=== PATIENT | male | born 2000 | race African-American/Black ===

== ENCOUNTER 2018-07-26 20:13 | Emergency (ER) | payer OTHER ==
[~2018-07-26] VITALS: Ht 167.6 cm; Wt 86.4 kg
[2018-07-26 20:16] VITALS: TEMP 97.7
[2018-07-26 21:03] LABS: BASO % 0.5 % (0.0-2.0); EOS # 0.1 (0.0-0.7); EOS % 1.7 % (0-4.0); GRAN # 3.5 (1.4-6.5); GRAN % 54.6 % (42.2-75.2); HEMOGLOBIN 17.3 g/dl (12.5-16.1); LYMPH # 2.3 (1.2-3.4); MEAN CELL VOLUME 72 fl (80.0-95.0); MEAN CORPUSCULAR HEMOGLOBIN 24 pg (26.0-32.0); MEAN CORPUSCULAR HGB CONC 33 g/dl (33.0-37.0); MEAN PLATELET VOLUME 10.6 fl (7.4-10.4); MONO # 0.4 (0.1-0.6); PLATELET COUNT 290 K/mm3 (130-400); RED BLOOD COUNT 7.28 M/mm3 (4.20-5.60); REDCELL DISTRIBUTION WIDTH-CV 15.5 % (11.5-14.5)
[2018-07-26 21:04] LABS: HEMATOCRIT 52.7 % (36.0-47.0)
[2018-07-26 21:14] LABS: ALANINE AMINOTRANSFERASE 34 U/L (21-72); ALBUMIN 4.8 gm/dL (3.5-5.0); ALKALINE PHOSPHATASE 73 U/L (50-136); ANION GAP 10 mmol/L (7-16); AST,SGOT 20 U/L (15-37); BILIRUBIN,TOTAL 0.9 mg/dL (0.0-1.0); BLOOD UREA NITROGEN 12 mg/dL (9-20); CALCIUM 9.8 mg/dL (8.4-10.2); CARBON DIOXIDE 25 mmol/L (22-30); CHLORIDE 105 mmol/L (98-107); CREATININE, serum 0.89 mg/dL (0.66-1.25); GLUCOSE 113 mg/dL (74-106); POTASSIUM 3.7 mmol/L (3.4-5.0); SODIUM 139 mmol/L (137-145); TOTAL PROTEIN 7.9 gm/dL (6.4-8.2)
[2018-07-26 21:28] LABS: TROPONIN-I < 0.012 ng/mL (0.000-0.034)
[2018-07-26 22:30] VITALS: BP 146/89; PULSE 118
== END 2018-07-26 22:30 | disposition home or self-care (01) ==
LOC: COL.ER 20:13
PROVIDERS: Emergency Medicine
DX: R00.0 Tachycardia, unspecified (principal); F12.90 Cannabis use, unspecified, uncomplicated
CPT/HCPCS: J2060; J7030

== ENCOUNTER 2018-07-27 22:29 | Emergency (ER) | payer OTHER ==
[~2018-07-27] VITALS: Ht 167.6 cm; Wt 86.4 kg
[2018-07-27 22:49] VITALS: TEMP 98.9
[2018-07-28 00:32] VITALS: PULSE 100
[2018-07-28 02:21] LABS: BASO % 0.3 % (0.0-2.0); EOS # 0.1 (0.0-0.7); EOS % 0.8 % (0-4.0); GRAN # 3.5 (1.4-6.5); GRAN % 56.8 % (42.2-75.2); HEMATOCRIT 46.5 % (36.0-47.0); LYMPH # 2.2 (1.2-3.4); LYMPH % 35.3 % (20.0-51.0); MEAN CELL VOLUME 73 fl (80.0-95.0); MEAN CORPUSCULAR HEMOGLOBIN 24 pg (26.0-32.0); MEAN CORPUSCULAR HGB CONC 33 g/dl (33.0-37.0); MEAN PLATELET VOLUME 10.5 fl (7.4-10.4); MONO # 0.4 (0.1-0.6); MONO % 6.8 % (1.7-9.3); PLATELET COUNT 258 K/mm3 (130-400); REDCELL DISTRIBUTION WIDTH-CV 14.1 % (11.5-14.5)
[2018-07-28 02:25] LABS: HEMOGLOBIN 15.3 g/dl (12.5-16.1)
[2018-07-28 02:31] LABS: ALANINE AMINOTRANSFERASE 34 U/L (21-72); ALBUMIN 4.3 gm/dL (3.5-5.0); ALKALINE PHOSPHATASE 60 U/L (50-136); ANION GAP 5 mmol/L (7-16); AST,SGOT 21 U/L (15-37); BILIRUBIN,TOTAL 0.9 mg/dL (0.0-1.0); BLOOD UREA NITROGEN 12 mg/dL (9-20); CALCIUM 9.7 mg/dL (8.4-10.2); CARBON DIOXIDE 30 mmol/L (22-30); CHLORIDE 103 mmol/L (98-107); CREATININE, serum 0.91 mg/dL (0.66-1.25); GLUCOSE 91 mg/dL (74-106); POTASSIUM 4.1 mmol/L (3.4-5.0); SODIUM 138 mmol/L (137-145); TOTAL PROTEIN 6.9 gm/dL (6.4-8.2)
[2018-07-28 02:44] LABS: TROPONIN-I < 0.012 ng/mL (0.000-0.034)
[2018-07-28 03:10] VITALS: BP 148/85
== END 2018-07-28 03:21 | disposition home or self-care (01) ==
LOC: COL.ER 22:29
PROVIDERS: Emergency Medicine
DX: F12.90 Cannabis use, unspecified, uncomplicated (principal)

== ENCOUNTER 2019-05-11 09:56 | Emergency (ER) | payer OTHER ==
[~2019-05-11] VITALS: Ht 167.6 cm; Wt 72.7 kg
[2019-05-11 09:58] VITALS: BP 158/88; TEMP 97.9
[2019-05-11 10:36] LABS: BASO % 0.4 % (0.0-2.0); EOS # 0.1 (0.0-0.7); EOS % 2.2 % (0-4.0); GRAN # 2.2 (1.4-6.5); GRAN % 49.2 % (42.2-75.2); HEMOGLOBIN 14.7 g/dl (12.5-16.1); LYMPH # 1.7 (1.2-3.4); LYMPH % 38.3 % (20.0-51.0); MEAN CELL VOLUME 75 fl (80.0-95.0); MEAN CORPUSCULAR HEMOGLOBIN 24 pg (26.0-32.0); MEAN CORPUSCULAR HGB CONC 32 g/dl (33.0-37.0); MEAN PLATELET VOLUME 10.9 fl (7.4-10.4); MONO # 0.4 (0.1-0.6); MONO % 9.7 % (1.7-9.3); PLATELET COUNT 229 K/mm3 (130-400); RED BLOOD COUNT 6.16 M/mm3 (4.20-5.60); REDCELL DISTRIBUTION WIDTH-CV 14.6 % (11.5-14.5)
[2019-05-11 10:43] LABS: PROTHROMBIN TIME 11.2 SECONDS (9.7-12.8)
[2019-05-11 10:44] LABS: PARTIAL THROMBOPLASTIN TIME 25.5 SECONDS (26.0-37.0)
[2019-05-11 10:46] LABS: ALANINE AMINOTRANSFERASE 18 U/L (21-72); ALBUMIN 4.3 gm/dL (3.5-5.0); ALKALINE PHOSPHATASE 54 U/L (50-136); ANION GAP 12 mmol/L (7-16); AST,SGOT 27 U/L (15-37); BILIRUBIN,TOTAL 0.9 mg/dL (0.0-1.0); BLOOD UREA NITROGEN 8 mg/dL (9-20); CALCIUM 9.4 mg/dL (8.4-10.2); CARBON DIOXIDE 28 mmol/L (22-30); CHLORIDE 106 mmol/L (98-107); CREATININE, serum 0.77 (0.66-1.25); GLUCOSE 96 mg/dL (74-106); POTASSIUM 3.9 mmol/L (3.4-5.0); SODIUM 145 mmol/L (137-145)
[2019-05-11 10:48] LABS: D-DIMER < 200.00 ng/mLDDu (200-230)
[2019-05-11 11:06] LABS: TROPONIN-I < 0.012 ng/mL (0.000-0.035)
[2019-05-11] MEDS ORDERED: DOXYCYCLINE 10100 MG PO (11:19)
[2019-05-11 11:54] VITALS: PULSE 100
== END 2019-05-11 11:59 | disposition home or self-care (01) ==
LOC: COL.ER 09:56
PROVIDERS: Emergency Medicine
DX: J20.9 Acute bronchitis, unspecified (principal)
CPT/HCPCS: J8540

== ENCOUNTER 2019-05-16 15:16 | Emergency (ER) | payer OTHER ==
[~2019-05-16] VITALS: Ht 170.2 cm; Wt 72.7 kg
[~2019-05-16 15:16] MED LIST: DOXYCYCLINE 10100 MG PO
[2019-05-16 15:33] VITALS: TEMP 98.8
[2019-05-16 18:02] VITALS: BP 148/94; PULSE 58
== END 2019-05-16 18:02 | disposition home or self-care (01) ==
LOC: COL.ER 15:16
DX: S50.862A Insect bite (nonvenomous) of left forearm, initial encounter (principal); W57.XXXA Bitten or stung by nonvenomous insect and other nonvenomous arthropods, initial encounter